=== PATIENT | male | born 1990 | race Hispanic/Latino ===

== ENCOUNTER 2016-12-08 16:00 | Emergency (ER) | payer MEDICAID, SELFPAY ==
[2016-12-08] MEDS ORDERED: Ibuprofen 800 MG TAB ONE (16:21)
== END 2016-12-08 16:25 | disposition home or self-care (01) ==
LOC: MADERS 16:00
DX: S39.012A Strain of muscle, fascia and tendon of lower back, initial encounter (principal); F17.210 Nicotine dependence, cigarettes, uncomplicated; X58.XXXA Exposure to other specified factors, initial encounter
CPT/HCPCS: 99283

== ENCOUNTER 2016-12-11 16:12 | Outpatient (CLI) | payer MEDICAID ==
--- NOTE | 2016-12-11 18:00 | RAD ---
RADIOGRAPH LUMBAR SPINE 5 VIEWS: HISTORY: 26-year-old male with acute low back pain for 3 days. FINDINGS: Alignment is normal. Vertebral body heights are maintained. There is no evidence of fracture, signif icant osteophytes, pars interarticularis defects, or any other focal osseous abnormality. There is m ild disc space narrowing at L5-S1. The rest of the disc spaces are maintained. IMPRESSION: 1. Mild degenerative disc changes at L5-S1. 2. The rest of the lumbar spine is normal. jn [] POS: KYLIE
== END 2016-12-11 16:13 | disposition home or self-care (01) ==
LOC: MADRAD 16:12
PROVIDERS: ATTEND Family Medicine
DX: M54.5 Low back pain (principal); M51.36 Other intervertebral disc degeneration, lumbar region
CPT/HCPCS: 72110

== ENCOUNTER 2019-06-23 21:57 | Emergency (ER) | payer SELFPAY | END 2019-06-23 22:08 | disposition home or self-care (01) | LOC: MADERS 21:57 | DX: H60.92 Unspecified otitis externa, left ear (principal); F17.210 Nicotine dependence, cigarettes, uncomplicated | CPT/HCPCS: 99282 ==

== ENCOUNTER 2019-12-03 15:29 | Emergency (ER) | payer SELFPAY ==
[2019-12-03] MEDS ORDERED: Acetaminophen 500 MG TAB ONE (16:15)
[2019-12-03] MEDS ORDERED: Ibuprofen 800 MG TAB ONE (16:15)
== END 2019-12-03 16:20 | disposition home or self-care (01) ==
LOC: MADERS 15:29
DX: K02.9 Dental caries, unspecified (principal); F17.210 Nicotine dependence, cigarettes, uncomplicated
CPT/HCPCS: 99283

== ENCOUNTER 2020-05-09 14:46 | Emergency (ER) | payer OTHER, SELFPAY ==
[2020-05-09] MEDS ORDERED: cefTRIAXone\\ROCEPHIN 1 GM VIAL ONE (15:47)
[2020-05-09] MEDS ORDERED: Sodium Chloride 0.9% 1,000 ML ONE (15:47)
[2020-05-09] MEDS ORDERED: Sodium Chloride 0.9% 100 ML ONE (15:48)
--- NOTE | 2020-05-09 16:04 | RAD ---
PA AND LATERAL CHEST: History: Cough FINDINGS: Heart size and mediastinum are within normal limits. There is left lower lobe infiltrative change pre sent. IMPRESSION: Retrocardiac infiltrate. POS: OFF
[2020-05-09 16:23] LABS: #Basophils 0.2 thou/uL (0.0-0.2); #Lymphocytes 1.9 thou/uL (1.20-3.40); #Monocytes 1.3 thou/uL (0.11-0.59); #Neutrophils 14.6 thou/uL (1.40-6.50); %Basophils 1.2 % (0.0-1.0); %Lymphocytes 10.7 % (21.0-51.0); %Monocytes 7.4 % (0.0-10.0); %Neutrophils 80.7 % (42.0-75.0); Mean Corpuscular HGB CONC 32.1 g/dL (32.0-36.0); Mean Corpuscular Hemoglobin 27.1 pg (27.0-31.0); Mean Corpuscular Volume 84.6 fL (78.0-98.0); Mean Platelet Volume 9.2 fL (7.4-10.4); Platelet Count 291 thou/uL (130-400); RBC Distribution Width 12.3 % (11.5-14.5); Red Blood Cell (RBC) Count 5.53 mill/uL (4.70-6.10); White Blood Cell (WBC) Count 18.1 thou/uL (4.8-10.8)
[2020-05-09 16:35] LABS: ALT (SGPT) 19 U/L (8-55); AST (SGOT) 14 U/L (5-34); Albumin 4.7 g/dL (3.5-5.0); Alkaline Phosphatase 100 U/L (40-110); Anion Gap 18 mmol/L (10-20); BUN (Urea Nitrogen) 13 mg/dL (8.9-20.6); Bilirubin, Total 1.8 mg/dL (0.2-1.2); Calc. Creatinine Clearance 0 mL/min (70-130); Calcium 9.4 mg/dL (7.8-10.44); Carbon Dioxide 25 mmol/L (22-29); Chloride 101 mmol/L (98-107); Estimated GFR-MDRD Greater than 90; Globulin 3.2 g/dL (2.4-3.5); Glucose 112 mg/dL (70-105); Potassium 3.7 mmol/L (3.5-5.1); Protein, Total 7.9 g/dL (6.0-8.3); Sodium 140 mmol/L (136-145)
[2020-05-10 19:05] LABS: SARS-CoV-2 MS2 Positive; SARS-CoV-2 N Gene Negative; SARS-CoV-2 S Gene Negative; SARS-CoV-2 by NAA Not Detected (NotDetected); SARS-CoV-2 orf1ab Negative
== END 2020-05-09 17:24 | disposition home or self-care (01) ==
LOC: MADERS 14:46
DX: J18.9 Pneumonia, unspecified organism (principal); F17.210 Nicotine dependence, cigarettes, uncomplicated; Z20.828 Contact with and (suspected) exposure to other viral communicable diseases
CPT/HCPCS: 71046; 80053; 83605; 84484; 85025; 85379; 87040; 87635; 96365; J0696; J3490; J7050; U0003

== ENCOUNTER 2020-05-19 12:02 | Outpatient (CLI) | payer OTHER ==
--- NOTE | 2020-05-19 12:32 | RAD ---
TWO VIEW CHEST: HISTORY: Pneumonia. COMPARISON: 05/09/2020. FINDINGS: Lung hinds appear clear. The questioned infiltrate in the retrocardiac region on the prior study is not apparent today. Heart and mediastinum unremarkable. IMPRESSION: Unremarkable chest. POS: AH
== END 2020-05-19 12:03 | disposition home or self-care (01) ==
LOC: MADRAD 12:02
PROVIDERS: ATTEND Family Medicine
DX: J18.9 Pneumonia, unspecified organism (principal)
CPT/HCPCS: 71046

== ENCOUNTER 2020-10-30 04:49 | Emergency (ER) | payer SELFPAY | END 2020-10-30 05:18 | disposition home or self-care (01) | LOC: MADERS 04:49 | DX: R21 Rash and other nonspecific skin eruption (principal); F17.210 Nicotine dependence, cigarettes, uncomplicated | CPT/HCPCS: 99281 ==

== ENCOUNTER 2022-11-08 08:36 | Emergency (ER) | payer SELFPAY ==
[2022-11-08] MEDS ORDERED: Piperacillin/Tazobactam 3.375 GM VIAL ONE (09:16)
[2022-11-08] MEDS ORDERED: Sodium Chloride 0.9% 1,000 ML ONE ×2 (09:16→10:23)
[2022-11-08] MEDS ORDERED: Acetaminophen 500 MG TAB ONE (09:16)
[2022-11-08] MEDS ORDERED: Sodium Chloride 0.9% 100 ML ONE (09:16)
[2022-11-08] MEDS ORDERED: Ondansetron PF 4 MG/2 ML Vial ONE (09:16)
[2022-11-08] MEDS ORDERED: Iopamidol 370 76% 100 ML VIAL ONE (09:21)
[2022-11-08 09:32] LABS: #Basophils 0.1 thou/uL (0.0-0.2); #Lymphocytes 1.6 thou/uL (1.20-3.40); #Neutrophils 10.9 thou/uL (1.40-6.50); %Basophils 0.8 % (0.0-1.0); %Eosinophils 0.1 % (0.0-10.0); %Lymphocytes 11.6 % (21.0-51.0); %Monocytes 7.4 % (0.0-10.0); Hemoglobin 15.1 g/dL (14.0-18.0); Mean Corpuscular HGB CONC 31.6 g/dL (32.0-36.0); Mean Corpuscular Hemoglobin 27.5 pg (27.0-31.0); Mean Platelet Volume 10.2 fL (7.4-10.4); Platelet Count 257 10x3/uL (130-400); RBC Distribution Width 12.7 % (11.5-14.5); Red Blood Cell (RBC) Count 5.47 mill/uL (4.70-6.10); White Blood Cell (WBC) Count 13.6 10x3/uL (4.8-10.8)
[2022-11-08 09:36] LABS: INR-International Normal Ratio 1.2; Prothrombin Time 15.5 sec (12.0-14.7)
[2022-11-08 09:45] LABS: ALT (SGPT) 11 U/L (8-55); AST (SGOT) 13 U/L (5-34); Albumin 3.9 g/dL (3.5-5.0); Alkaline Phosphatase 111 U/L (40-110); Anion Gap 15 mmol/L (10-20); BUN (Urea Nitrogen) 8 mg/dL (8.9-20.6); Bilirubin, Total 1.2 mg/dL (0.2-1.2); CRP (Inflammatory) 18.44 mg/dL (= or < 0.5); Calc. Creatinine Clearance 0 mL/min (70-130); Carbon Dioxide 25 mmol/L (22-29); Chloride 97 mmol/L (98-107); Estimated GFR 96; Globulin 3.6 g/dL (2.4-3.5); Glucose 101 mg/dL (70-105); Potassium 3.4 mmol/L (3.5-5.1); Protein, Total 7.5 g/dL (6.0-8.3); Sodium 134 mmol/L (136-145)
[2022-11-08] MEDS ORDERED: Sodium Chloride 0.9% 250 ML 250 ML ONE (09:59)
[2022-11-08] MEDS ORDERED: Vancomycin 1 GM VIAL ONE (09:59)
== END 2022-11-08 14:14 | disposition short-term general hospital (02) ==
LOC: MADERS 08:36
DX: A41.9 Sepsis, unspecified organism (principal); L03.211 Cellulitis of face; F17.210 Nicotine dependence, cigarettes, uncomplicated
CPT/HCPCS: 70487; 80053; 83605; 85025; 85610; 85730; 86140; 87040; 96365; 96367; 96375; J2405; J2543; J3370; J3490; J7050; Q9967